=== PATIENT | male | born 1995 | race American Indian/Alaskan Native ===

== ENCOUNTER 2019-11-17 13:31 | Emergency (ER) | payer SELFPAY ==
[2019-11-17 13:40] VITALS: BP 145/90
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
== END 2019-11-17 15:16 | disposition left against medical advice (07) ==
LOC: ED 13:31
DX: Z04.1 Encounter for examination and observation following transport accident (principal); V89.2XXA Person injured in unspecified motor-vehicle accident, traffic, initial encounter; Y93.89 Activity, other specified; Y92.89 Other specified places as the place of occurrence of the external cause; Y99.8 Other external cause status